=== PATIENT | male | born 1955 | race Caucasian/White ===

== ENCOUNTER → 2017-06-02 08:02 | Outpatient (POV) | payer BC, SELFPAY | PROVIDERS: Visit Provider Nurse Practitioner Acute Care | DX: Z00.00 Encounter for general adult medical examination without abnormal findings (principal) ==

== ENCOUNTER → 2017-06-19 09:04 | Outpatient (CLI) | payer BC, SELFPAY ==
[2017-06-19 09:38] LABS: Blood Urea Nitrogen 11 mg/dL (7-18); Creatinine,Serum 1.14 mg/dL (0.70-1.30); Estimated Glomerular Filt Rate 66 ml/min (>60); GFR (African American) 79 ML/MIN (>60)
--- NOTE | 2017-06-19 09:51 | CT_ITS ---
CT abdomen w con CLINICAL INDICATION: ITS.REASON: DIARRHEA, DYSPEPSIA, VIRAL ENTERITIS ORDERING PHYSICIAN: Amanda Ayon PATIENT AGE: 62 years COMPARISON: None TECHNIQUE: Axial images obtained with sagittal and coronal reformats. PROCEDURE: Oral Contrast: Redicat IV Contrast: 75 mL's of Isovue-370. FINDINGS: There is mild thickening of the pericardium anteriorly nonspecific. The lung bases are clear. There has been a prior cholecystectomy. No ductal dilatation. No focal liver lesion. Spleen, adrenal glands, and pancreas are unremarkable. There is a nonobstructing 4 mm stone in the mid polar region of the right kidney. There is a 19 mm left renal cyst and other smaller left and right renal cysts as well. No suspicious renal lesions. Unremarkable appendix. Tiny umbilical hernia containing fat. No intestinal obstruction or free air. The pelvis is not included in the exam. There is thickening versus nondistention of the descending colon. No acute bony anomalies. IMPRESSION: 1. Right nephrolithiasis with small bilateral renal cysts. 2. Thickening versus nondistention of the descending colon. Colitis is a consideration. The sigmoid colon is not included in the exam.
--- NOTE | 2017-06-19 10:32 | HMH.ITSHM ---
TRINTELLIX XANAX AMBIEN E MYCIN PROVASTATIN ZETIA KONSYL ALIGN MIRALAX VIT D
== END ==
PROVIDERS: PCP Nurse Practitioner; Visit Provider Nurse Practitioner Acute Care
DX: R19.7 Diarrhea, unspecified (principal); A08.39 Other viral enteritis; K30 Functional dyspepsia
CPT/HCPCS: 36415; 74160; 82565; 84520; Q9967

== ENCOUNTER 2017-06-23 07:30 | Day surgery (SDC) | payer BC, SELFPAY ==
[2017-06-20 12:24] VITALS: BMI 24.6
[2017-06-23] VITALS (12 sets, daily range): BP systolic 110–144; BP diastolic 66–94; PULSE 55–74; RESP 15–30; TEMP 36.5–36.7; O2SAT 91–100
--- NOTE | 2017-06-23 08:43 | P.PCN_ITS ---
[facility] Procedure Note Procedure Note:: Upper Endoscopy Procedure Report: Esophagogastroduodenoscopy with cold biopsies Endoscopost: Paul Real II, MD Referring Physician: Jennifer FRYE Date of Procedure: June 23, 2017 Equipment: Olympus GIF 180 standard upper endoscope Sedation: Fentanyl 200 mg IV/ Versed 9 mg IV Indications: Mr. Newman is a 62-year-old gentleman is here for diagnostic upper endoscopy. The patient has had a history of gastric dysmotility and functional dyspepsia. He has been on erythromycin. He also has been on a fiber bowel regimen (MiraLAX plus Konsyl or Metamucil). The patient does state that in early May he developed a possible viral enteritis that went away but returned. He was having epigastric abdominal discomfort. He originally had nausea, vomiting and diarrhea. The nausea went away but he continues to have some bloating, burping, fullness and early satiety. He has epigastric discomfort. He reports no melena, bright red rectal bleeding or weight loss. He was having some constipation until he returned on the fiber regimen. He reports no dysphagia. He is also here today for diagnostic colonoscopy. His CAT scan did show thickening of the descending colon. Procedure: Prior to the procedure, a history and physical exam was performed, and patient' s medications and allergies were reviewed. The risks, benefits and alternatives of the sedation and procedure were discussed with the patient. All questions were answered and informed consent was obtained. The patient was brought to the procedure room. Patient identification and proposed procedure were verified by the physician and the nurse. The patient was placed in a left lateral decubitus position and the scope was passed under direct vision. Throughout the procedure, the patient's blood pressure, pulse, and oxygen saturations were monitored continuously. The upper GI endoscopy was accomplished without difficulty. The patient tolerated the procedure well. Findings: The scope was passed directly into the upper esophagus and advanced to the third portion of the duodenum. The post bulbar duodenum and duodenal bulb were normal with normal mucosa and conniventes. The scope was withdrawn through a normal duodenal bulb and pylorus into the stomach. There was linear erythema of the antrum and body with bile reflux consistent with moderate linear reactive gastritis. Upon retroflexion there was no hiatal hernia. 2 biopsies were taken in the antrum and along the lesser curvature for histology and/or CLOtest. The scope was then withdrawn into the esophagus. The remainder of the esophageal mucosa was normal. Impression: 1. 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 I will place the patient on treatment for visceral sensitivity. I would also consider switching over to another promotility agent since there is tachyphylaxis with erythromycin. I will proceed with screening colonoscopy.
--- NOTE | 2017-06-23 09:02 | HMH.PROC ---
[facility] Procedure Note Procedure Note:: Colonoscopy Procedure Report: Colonoscopy with cold snare polypectomy Endoscopist: Paul Real II, MD Referring physician: Jennifer FRYE Date of Procedure: June 23, 2017 Equipment: Olympus 180 variable stiffness pediatric colonoscope Sedation: Fentanyl 200 mg IV/ Versed 13 mg IV (combined sedation for EGD and colonoscopy) Indication: Mr. Newman is a 62-year-old gentleman who is here for diagnostic colonoscopy. The patient has had a history of constipation but did have a recent viral enteritis. He also had a CAT scan that showed thickening of the descending colon. The patient has had improvement with the fiber bowel regimen (MiraLAX plus Metamucil). The patient did have a colonoscopy and December 2007 at which time a single polyp (tubular adenoma ?1) was removed. He had a repeat colonoscopy in December 2012 at which time 3 polyps (tubular adenoma ?1/hyperplastic polyps ?2) were removed. The patient reports no bright red rectal bleeding, weight loss or family history of colon cancer. Procedure: Prior to the procedure, a history and physical exam was performed, and patient's medications and allergies were reviewed. The risks, benefits and alternatives of the sedation and procedure were discussed with the patient. All questions were answered and informed consent was obtained. The patient was brought to the procedure room. Patient identification and proposed procedure were verified by the physician and the nurse. The patient was placed in a left lateral decubitus position and the scope was passed under direct vision. Throughout the procedure, the patient's blood pressure, pulse, and oxygen saturations were monitored continuously. The colonoscopy was accomplished without difficulty. The patient tolerated the procedure well. Findings: On digital rectal examination there was normal rectal tone. There were no external hemorrhoids. The prostate was 2+, smooth, soft, symmetric without nodules. The colonoscope was introduced through the anal canal to the rectum and advanced to the cecum. The ileocecal valve and appendiceal orifice were identified. The scope was advanced a short distance into the ileum which appeared grossly normal. The scope was then withdrawn into the colon. The cecum, ascending, transverse, descending, sigmoid and rectum were grossly normal. There was a single 5-6 mm polyp in the sigmoid colon removed via cold snare polypectomy. There were no mucosal abnormalities identified. Upon retroflexion within the rectum there were grade 1 internal hemorrhoids. Impression: 1. Sigmoid colon polyp 2. Grade 1 internal hemorrhoids Plan: There was no evidence of colitis or diverticulitis. The enteritis or enterocolitis has primarily resolved. I will follow up the polyp pathology and recommend repeat colonoscopy again in 5 years based upon the polyp histology. I would encourage dietary measures and fiber bowel regimen on a long-term daily maintenance basis.
--- NOTE | 2017-06-23 09:06 | P.PCN_ITS ---
[facility] Procedure Note Procedure Note:: Colonoscopy Procedure Report: Colonoscopy with cold snare polypectomy Endoscopist: Paul Real II, MD Referring physician: Jennifer FRYE Date of Procedure: June 23, 2017 Equipment: Olympus 180 variable stiffness pediatric colonoscope Sedation: Fentanyl 200 mg IV/ Versed 13 mg IV (combined sedation for EGD and colonoscopy) Indication: Mr. Newman is a 62-year-old gentleman who is here for diagnostic colonoscopy. The patient has had a history of constipation but did have a recent viral enteritis. He also had a CAT scan that showed thickening of the descending colon. The patient has had improvement with the fiber bowel regimen (MiraLAX plus Metamucil). The patient did have a colonoscopy and December 2007 at which time a single polyp (tubular adenoma ?1) was removed. He had a repeat colonoscopy in December 2012 at which time 3 polyps (tubular adenoma ?1/ hyperplastic polyps ?2) were removed. The patient reports no bright red rectal bleeding, weight loss or family history of colon cancer. Procedure: Prior to the procedure, a history and physical exam was performed, and patient' s medications and allergies were reviewed. The risks, benefits and alternatives of the sedation and procedure were discussed with the patient. All questions were answered and informed consent was obtained. The patient was brought to the procedure room. Patient identification and proposed procedure were verified by the physician and the nurse. The patient was placed in a left lateral decubitus position and the scope was passed under direct vision. Throughout the procedure, the patient's blood pressure, pulse, and oxygen saturations were monitored continuously. The colonoscopy was accomplished without difficulty. The patient tolerated the procedure well. Findings: On digital rectal examination there was normal rectal tone. There were no external hemorrhoids. The prostate was 2+, smooth, soft, symmetric without nodules. The colonoscope was introduced through the anal canal to the rectum and advanced to the cecum. The ileocecal valve and appendiceal orifice were identified. The scope was advanced a short distance into the ileum which appeared grossly normal. The scope was then withdrawn into the colon. The cecum , ascending, transverse, descending, sigmoid and rectum were grossly normal. There was a single 5-6 mm polyp in the sigmoid colon removed via cold snare polypectomy. There were no mucosal abnormalities identified. Upon retroflexion within the rectum there were grade 1 internal hemorrhoids. Impression: 1. Sigmoid colon polyp 2. Grade 1 internal hemorrhoids Plan: There was no evidence of colitis or diverticulitis. The enteritis or enterocolitis has primarily resolved. I will follow up the polyp pathology and recommend repeat colonoscopy again in 5 years based upon the polyp histology. I would encourage dietary measures and fiber bowel regimen on a long-term daily maintenance basis.
== END 2017-06-23 10:45 | disposition home or self-care (01) ==
PROVIDERS: PCP Nurse Practitioner; Visit Provider Internal Medicine Gastroenterology
PROC: 0DJ08ZZ Inspection of Upper Intestinal Tract, Via Natural or Artificial Opening Endoscopic (ICD-10-PCS; CPT 43235; principal; 2017-06-23 08:30)
DX: K29.60 Other gastritis without bleeding (principal); K63.5 Polyp of colon; K64.0 First degree hemorrhoids
CPT/HCPCS: 43239; 45380; 99152; 99153

== ENCOUNTER → 2017-09-08 09:48 | Outpatient (POV) | payer BC, SELFPAY | PROVIDERS: Visit Provider Nurse Practitioner Acute Care | DX: Z00.00 Encounter for general adult medical examination without abnormal findings (principal) ==

== ENCOUNTER → 2017-10-24 20:09 | Outpatient (CLI) | payer BC, SELFPAY | PROVIDERS: PCP Nurse Practitioner; Visit Provider Nurse Practitioner Family | DX: G47.33 Obstructive sleep apnea (adult) (pediatric) (principal) | CPT/HCPCS: 95810 ==

== ENCOUNTER → 2017-12-08 08:25 | Outpatient (POV) | payer BC, SELFPAY | PROVIDERS: Visit Provider Nurse Practitioner Acute Care | DX: Z00.00 Encounter for general adult medical examination without abnormal findings (principal) ==

== ENCOUNTER → 2018-06-08 08:23 | Outpatient (POV) | payer BC, SELFPAY | PROVIDERS: Visit Provider Nurse Practitioner Acute Care | DX: Z00.00 Encounter for general adult medical examination without abnormal findings (principal) ==

== ENCOUNTER → 2019-06-07 08:37 | Outpatient (POV) | payer BC, SELFPAY | PROVIDERS: Visit Provider Nurse Practitioner Family | DX: Z00.00 Encounter for general adult medical examination without abnormal findings (principal) ==

== ENCOUNTER → 2021-02-08 09:30 | Outpatient (CLI) | payer BC, SELFPAY ==
--- NOTE | 2021-02-08 09:34 | XR_ITS ---
PROCEDURE: XR HIP RT 2-3V W/PELVIS CLINICAL INDICATION: RT HIP INJURY COMPARISON: CT ABDW CT abdomen w con from 06/19/2017 FINDINGS: No fracture or dislocation. 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 There is a vague partially calcified density projecting off the posterior aspect of the proximal shaft of the femur possibly due to an area of tendinous insertion. Follow-up may confirm stability. This area measures approximately 2 by 0.6 cm. IMPRESSION: No acute fracture. Small exophytic partially calcified region along the posterior aspect of the proximal femur shaft possibly due to an area tendinous insertion Dictated by: Jian Richardson MD 02/08/2021 10:24 Jian Richadrson MD in [place] 02/08/2021 10:24
== END ==
PROVIDERS: PCP Family Medicine; Visit Provider Family Medicine
DX: S79.911A Unspecified injury of right hip, initial encounter (principal)
CPT/HCPCS: 73502

== ENCOUNTER → 2021-07-17 11:01 | Outpatient (CLI) | payer BC, SELFPAY ==
[2021-07-17 11:11] LABS: Microscopic, Urine URINE MICROSCOPIC (MICROSCOPIC)
[2021-07-17 11:47] LABS: Basophils # 0.1 K/mm3 (0-0.2); Basophils % 1.1 % (0.1-2.0); Eosinophils # 0.1 K/mm3 (0.0-0.4); Eosinophils % 0.7 % (0.1-12.0); Hematocrit 46.6 % (42.0-52.0); Hemoglobin 15.5 g/dL (14.1-18.0); Lymphocytes # 2.5 K/mm3 (0.7-4.5); Mean Corpuscular HGB Conc 33.2 g/dL (31.8-35.4); Mean Corpuscular Hemoglobin 31.6 pg (27.0-31.2); Mean Corpuscular Volume 95.2 fl (80-94); Mean Platelet Volume 9.1 fl (7.4-10.4); Monocytes # 0.4 K/mm3 (0.1-1.0); Monocytes % 5.5 % (1.7-9.3); Neutrophils # 3.6 K/mm3 (1.8-7.8); Neutrophils % 54.7 % (37.0-80.0); Platelet Count 238 K/mm3 (142-424); Red Blood Count 4.89 M/mm3 (4.60-6.20); Red Cell Distribution Width 13.1 % (11.5-17.5); White Blood Count 6.6 K/mm3 (4.8-10.8)
[2021-07-17 11:58] LABS: Appearance,Urine CLEAR (Clear); Bilirubin,Urine Negative (Negative); Blood, Urine TRACE-I (Negative); Color,Urine YELLOW (Yellow); Glucose,Urine (UA) Negative (Negative); Ketones,Urine Negative (Negative); Leukocyte Esterase,Urine Negative (Negative); Nitrate,Urine Negative (Negative); Protein,Urine Negative (Negative); Specific Gravity, Urine 1.025 (1.005-1.030); Urobilinogen,Urine 0.2 EU/dl (0.2)
[2021-07-17 12:28] LABS: Total Protein,Urine Random < 5.0 mg/dL (0.0-12.0)
[2021-07-17 12:33] LABS: Bacteria,Urine Trace /lpf; WBC,Urine Occasional #/hpf (0-3)
[2021-07-17 12:40] LABS: Creatinine,Urine Random 275 mg/dL (Not Estab.)
[2021-07-17 12:59] LABS: Albumin Level 4.4 g/dl (3.5-5.0); Anion Gap 11.2 mEq/L (5-15); Blood Urea Nitrogen 15 mg/dl (9-20); Calcium 9.6 mg/dl (8.4-10.2); Carbon Dioxide 31 mmol/L (22.0-30.0); Chloride 104 mmol/L (98-107); Estimated Glomerular Filt Rate 61 ml/min (>60); GFR (African American) 74 ML/MIN (>60); Glucose 80 mg/dl (74-100); Phosphorous 3.5 mg/dl (2.5-4.5); Potassium 4.2 mmoL/L (3.5-5.1); Sodium 142 mmol/L (136-145)
[2021-07-17 13:11] LABS: Intact Parathyroid Hormone 94.3 pg/mL (7.5-53.5)
[2021-07-17 13:17] LABS: 25-OH Vitamin D, Total 49.2 ng/mL (30-100)
== END ==
PROVIDERS: Visit Provider Internal Medicine Nephrology
DX: N18.30 Chronic kidney disease, stage 3 unspecified (principal); E55.9 Vitamin D deficiency, unspecified
CPT/HCPCS: 36415; 80069; 81001; 82306; 82570; 83970; 84155; 85025

== ENCOUNTER → 2021-07-23 09:45 | Outpatient (POV) | payer BC, SELFPAY | PROVIDERS: Visit Provider Internal Medicine Nephrology | DX: Z00.00 Encounter for general adult medical examination without abnormal findings (principal) ==

== ENCOUNTER → 2021-08-06 10:47 | Outpatient (CLI) | payer BC, SELFPAY ==
--- NOTE | 2021-08-06 10:52 | US_ITS ---
FINAL REPORT TECHNIQUE: Ultrasound images of the kidneys and bladder were obtained. CLINICAL HISTORY: CKD FINDINGS: The right kidney measures 12.4 cm in length. It is normal in echogenicity. There is no hydronephrosis. The left kidney measures 10.4 cm in length. There is a benign-appearing 1.2 cm cyst in the upper pole. There is no hydronephrosis. The spleen measures 10.4 cm and is unremarkable. IMPRESSION: Benign-appearing cyst in the upper pole of the left kidney. No hydronephrosis. Reviewed, Interpreted and Dictated by Shahzad Hirsch MD Transcribed by Georgette Cisneros Authenticated by Shahzad Hirsch MD on 08/06/2021 02:16:07 PM [facility]
== END ==
PROVIDERS: PCP Family Medicine; Visit Provider Internal Medicine Nephrology
DX: N18.2 Chronic kidney disease, stage 2 (mild) (principal)
CPT/HCPCS: 76770

== ENCOUNTER → 2021-12-28 09:34 | Outpatient (CLI) | payer BC, SELFPAY ==
[2021-12-28 10:24] LABS: Albumin Level 4.2 g/dl (3.5-5.0); Anion Gap 9.8 mEq/L (5-15); Blood Urea Nitrogen 13 mg/dl (9-20); Calcium 9.9 mg/dl (8.4-10.2); Carbon Dioxide 31 mmol/L (22.0-30.0); Chloride 105 mmol/L (98-107); Estimated Glomerular Filt Rate 61 ml/min (>60); GFR (African American) 74 ML/MIN (>60); Glucose 103 mg/dl (74-100); Phosphorous 3.6 mg/dl (2.5-4.5); Potassium 3.8 mmoL/L (3.5-5.1); Sodium 142 mmol/L (136-145)
[2021-12-28 10:29] LABS: Appearance,Urine CLEAR (Clear); Bilirubin,Urine Negative (Negative); Blood, Urine Negative (Negative); Color,Urine YELLOW (Yellow); Glucose,Urine (UA) Negative (Negative); Ketones,Urine Negative (Negative); Leukocyte Esterase,Urine Negative (Negative); Nitrate,Urine Negative (Negative); Protein,Urine Negative (Negative); Urobilinogen,Urine 0.2 EU/dl (0.2)
[2021-12-28 10:35] LABS: Intact Parathyroid Hormone 100.7 pg/mL (7.5-53.5)
[2021-12-28 10:48] LABS: Bacteria,Urine Trace /lpf; Microscopic, Urine URINE MICROSCOPIC (MICROSCOPIC); Squamous Epithelial Cell,Urine Occasional #/hpf (0-5)
[2021-12-29 16:15] LABS: Calcium, Ionized 5.3 mg/dL (4.5-5.6)
== END ==
PROVIDERS: PCP Family Medicine; Visit Provider Internal Medicine Nephrology
DX: N18.2 Chronic kidney disease, stage 2 (mild) (principal); E21.3 Hyperparathyroidism, unspecified
CPT/HCPCS: 36415; 80069; 81001; 82330; 83970

== ENCOUNTER → 2021-12-31 13:00 | Outpatient (POV) | payer BC, SELFPAY | PROVIDERS: Visit Provider Internal Medicine Nephrology | DX: Z00.00 Encounter for general adult medical examination without abnormal findings (principal) ==

== ENCOUNTER → 2022-06-13 08:45 | Outpatient (CLI) | payer MEDICARE, BC, SELFPAY ==
--- NOTE | 2022-06-13 09:13 | ECG_ITS ---
APPROVED REPORT Exam: Resting ECG HR:73 bpm ECG Measurements Heart Rate 73 AXES [place] 178 P 66 QRSd 95 QRS 81 QT 378 T 62 QTc 405 Conclusion SINUS RHYTHM NORMAL ECG UNCONFIRMED REPORT Electronically signed by : Abelino Carmichael MD 06/13/2022 14:21:53
[2022-06-13 10:03] LABS: Basophils # 0.1 K/mm3 (0-0.2); Basophils % 0.8 % (0.1-2.0); Eosinophils # 0.1 K/mm3 (0.0-0.4); Eosinophils % 0.7 % (0.1-12.0); Hematocrit 47.5 % (42.0-52.0); Hemoglobin 15.4 g/dL (14.1-18.0); Lymphocytes # 2.5 K/mm3 (0.7-4.5); Lymphocytes % 26.9 % (10-50); Mean Corpuscular HGB Conc 32.4 g/dL (31.8-35.4); Mean Corpuscular Volume 95.8 fl (80-94); Mean Platelet Volume 9.2 fl (7.4-10.4); Monocytes # 0.5 K/mm3 (0.1-1.0); Monocytes % 5.1 % (1.7-9.3); Neutrophils # 6.1 K/mm3 (1.8-7.8); Neutrophils % 66.5 % (37.0-80.0); Platelet Count 240 K/mm3 (142-424); Red Blood Count 4.96 M/mm3 (4.60-6.20); White Blood Count 9.2 K/mm3 (4.8-10.8)
[2022-06-13 10:36] LABS: Alanine Aminotransferase 23 U/L (12-78); Albumin Level 4.4 g/dl (3.5-5.0); Albumin/Globulin Ratio 1.5 (1.1-1.8); Alkaline Phosphatase 95 U/L (38-126); Anion Gap 12.9 mEq/L (5-15); Aspartate Amino Transferase 26 U/L (17-59); Bilirubin,Total 0.6 mg/dl (0.2-1.3); Blood Urea Nitrogen 14 mg/dl (9-20); Calcium 9.6 mg/dl (8.4-10.2); Carbon Dioxide 28 mmol/L (22.0-30.0); Chloride 104 mmol/L (98-107); Estimated Glomerular Filt Rate 51 ml/min (>60); GFR (African American) 62 ML/MIN (>60); Glucose 97 mg/dl (74-100); Magnesium 2.1 mg/dl (1.6-2.3); Phosphorous 3.4 mg/dl (2.5-4.5); Potassium 3.9 mmoL/L (3.5-5.1); Sodium 141 mmol/L (136-145); Total Protein,Serum 7.4 g/dl (6.3-8.2)
[2022-06-13 10:51] LABS: 25-OH Vitamin D, Total 38.6 ng/mL (30-100)
[2022-06-13 11:05] LABS: Thyroid Stimulating Hormone 1.92 uIU/mL (0.465-4.68)
== END ==
PROVIDERS: PCP Family Medicine; Visit Provider Family Medicine
DX: R55 Syncope and collapse (principal); F41.1 Generalized anxiety disorder; E55.9 Vitamin D deficiency, unspecified
CPT/HCPCS: 36415; 80053; 82306; 83735; 84100; 84443; 85025; 93005

== ENCOUNTER → 2022-12-20 10:22 | Outpatient (CLI) | payer MEDICARE, BC, SELFPAY ==
--- NOTE | 2022-12-20 10:28 | XR_ITS ---
FINAL REPORT CLINICAL HISTORY: SHOULDER PAIN, decreased rom FINDINGS: Right shoulder Three views were obtained. There is no acute fracture or dislocation. There is mild AC joint degenerative change. No soft tissue abnormality is identified. IMPRESSION: No acute process. Reviewed, Interpreted and Dictated by Clyde French III, MD Transcribed by Carolina Nunez Authenticated and [facility]
--- NOTE | 2022-12-20 10:28 | XR_ITS ---
FINAL REPORT CLINICAL HISTORY: SHOULDER PAIN for a few months, decreased rom FINDINGS: Left shoulder Three views were obtained. There is no acute fracture or dislocation. There is mild AC joint degenerative change. No soft tissue abnormality is identified. IMPRESSION: No acute process. Reviewed, Interpreted and Dictated by Clyde French III, MD Transcribed by Carolina Nunez Authenticated and [facility]
== END ==
PROVIDERS: PCP Family Medicine; Visit Provider Family Medicine
DX: M25.511 Pain in right shoulder (principal); M25.512 Pain in left shoulder
CPT/HCPCS: 73030

== ENCOUNTER 2023-06-17 16:57 | Outpatient (CLI) | payer MEDICARE, BC, SELFPAY ==
[2023-06-20 13:13] LABS: Pancreatic Elastase, Fecal 144 (>200)
== END 2023-06-17 23:59 ==
LOC: LAB.DROPOF 16:57
PROVIDERS: PCP Family Medicine; Visit Provider Nurse Practitioner Family
DX: R14.0 Abdominal distension (gaseous) (principal)
CPT/HCPCS: 82656

== ENCOUNTER 2024-01-01 14:41 | Outpatient (RCR) | payer MEDICARE, BC, SELFPAY ==
--- NOTE | 2024-01-01 15:27 | HMH.PTOPEV ---
PT Outpatient Evaluation Rehab PT Outpatient Evaluation Start: 01/01/24 14:48 Freq: Status: Active Protocol: Document 01/01/24 15:16 PHOELSY (Rec: 01/01/24 15:26 PHORNE [id number]) E-signed By Shamir Vera, PT Outpatient Therapy Subjective History Subjective History This is the initial PT eval for Abelino Newman, 68 yowm who presents with c/o intermittent dizziness x ~ 1 yr overall. He reports symptoms seem to be most often present with a change in position from seated to standing or walking. He reports he has already had testing for orthostatic hypotension performed which was negative. He reports these symptoms are also not consistently present with any certain action, He has no hx of cardiac issues per his report. He reports no significant PMH other than HLD and anxiety which he takes medication for. New diagnosis of cancer in past 12 No months? Chief Complaint Other Symptom Description Intermittent Level of pain today (0-10) 0 Balance Eval Nystagmus Nystagmus Presence None Timed Up and Go Test 3. Is the Timed Up and Go Test result < yes 12 seconds? Oculomotor Gaze Oculomotor Gaze Nml: Vergence Smooth Pursuit Saccades VOR Cancellation Cover/Uncover Cross Cover Miscellaneous Dx PT Eval Objective Objective Pt had no nystagmus noted with Chantal-hallpike testing and all occulomotor tests were normal. BP this date was 118/76 mmHg in sitting. Unable to elicit any dizziness with testing this date. Outpatient Therapy Assessment Impairments Problems/Impairmments Impaired Self Care/Self Management Prognosis Rehab Potential Innapropriate for Skilled Therapy Comment Pt currently has no need for skilled therapy at this time. Recommended pt contact our office with any new symptoms if desired. Clinical Impression Consistent with Diagnosis Yes Outpatient Therapy Plan of Care Treatment Plan May Include Eval/Re-Eval Yes Frequency Times per week 0 Duration Number of Weeks 0 Addendums This patient is a candidate for social No or vocational rehab? Patient/Guardian verbally acknowledges Yes understanding of treatment program and consents to further treatment? Patient/Guardian verbally acknowledges Yes understanding of diagnosis, prognosis and goals for treatment? Eval Complexity PT Charges 76246 - High Complexity Shoulder/Elbow Eval Shoulder Objective Measurements Elbow Objective Measurements PHYSICIAN CERTIFICATION: I certify the specified therapy services for Abelino Arjun Newman are required, authorized, and reviewed every 30 days.
== END 2024-01-01 14:45 | disposition home or self-care (01) ==
LOC: PT 14:41
PROVIDERS: Visit Provider Family Medicine
DX: R42 Dizziness and giddiness (principal)
CPT/HCPCS: 97163